=== PATIENT | male | born 1980 | race Caucasian/White ===

== ENCOUNTER → 2018-06-16 | Outpatient (CLI) | payer BC ==
--- NOTE | 2018-06-16 14:31 | XR ---
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 There is as sociated soft tissue swelling, hypertrophic change. No dislocation. Spurring present at the talar nec k, tibiotalar joint compatible with osteoarthritis. IMPRESSION: Nonunion proximal fifth metatarsal fracture.
== END ==
LOC: RADXRMAIN 10:05
PROVIDERS: ATTEND Family Medicine
DX: S92.354K Nondisplaced fracture of fifth metatarsal bone, right foot, subsequent encounter for fracture with nonunion (principal); M79.673 Pain in unspecified foot

== ENCOUNTER → 2019-04-19 | Outpatient (CLI) | payer BC ==
[2019-04-19 08:05] LABS: Basophils # (A) 0.1 k/uL (0-0.2); Basophils % (A) 1 %; Eosinophils # (A) 0.3 k/uL (0-0.7); Eosinophils % (A) 5 %; HCT 50.9 % (39.0-53.0); HGB 16.6 gm/dL (13.0-17.5); Lymphocytes # (A) 2.2 k/uL (1.0-4.8); Lymphocytes % (A) 35 %; MCH 31.2 pg (25.0-35.0); MCHC 32.7 g/dL (31.0-37.0); MCV 95.5 fL (80.0-100.0); Mean Platelet Volume 7.3; Monocytes # (A) 0.4 k/uL (0-1.0); Monocytes % (A) 6 %; Neutrophils # (A) 3.2 k/uL (1.3-7.7); Neutrophils % (A) 51 %; Platelet Count 195 k/uL (150-450); RBC 5.32 m/uL (4.30-5.90); RDW 13.8 % (11.5-15.5); WBC 6.3 k/uL (3.8-10.6)
[2019-04-19 15:35] LABS: Carbon Dioxide 26.8 mmol/L (21.6-31.8); LDL Cholesterol,Calculated 97.8 mg/dL (0.0-131.0); Potassium 4.5 mmol/L (3.5-5.5); VLDL Calculation 49.2 mg/dL (5.00-40.00)
[2019-04-19 15:36] LABS: African American GFR (CKD) 80.8 (60.0-200.0); Albumin 4.6 g/dL (3.80-4.90); Albumin/Globulin Ratio 1.84 (1.60-3.17); Anion Gap 9.2 mmol/L (4.00-12.00); BUN/Creat Ratio 13.08 Ratio (12.00-20.00); Calcium 9.1 mg/dL (8.7-10.3); Globulin 2.5 g/dL (1.6-3.3); Total Bilirubin 0.6 mg/dL (0.3-1.2); Total Protein 7.1 g/dL (6.2-8.2)
[2019-04-19 16:03] LABS: Vitamin D 25 Hydroxy 13.3 ng/mL (30.0-100.0)
== END | disposition home or self-care (01) ==
LOC: LABWHC1 07:34
DX: E78.5 Hyperlipidemia, unspecified (principal); Z13.29 Encounter for screening for other suspected endocrine disorder; E27.8 Other specified disorders of adrenal gland; R53.82 Chronic fatigue, unspecified; E27.49 Other adrenocortical insufficiency; E23.0 Hypopituitarism; E34.9 Endocrine disorder, unspecified
CPT/HCPCS: 36415; 80053; 80061; 82040; 82306; 82533; 82626; 82670; 82672; 83001; 83002; 83090; 84153; 84270; 84305; 84403; 84436; 84439; 84443; 84481; 85025

== ENCOUNTER → 2020-05-25 | Outpatient (CLI) | payer BC | END | disposition home or self-care (01) | LOC: LABWHC1 14:08 | PROVIDERS: ATTEND Family Medicine | DX: Z03.818 Encounter for observation for suspected exposure to other biological agents ruled out (principal) | CPT/HCPCS: U0003; C9803 ==

== ENCOUNTER 2020-08-11 11:16 | Emergency (ER) | payer BC ==
[2020-08-11 11:26] VITALS: TEMP 98.9
[2020-08-11] MEDS ORDERED: methylPREDNISolone SOD SUCCI 125 MG/2 ML VIAL IV STA (11:53)
[2020-08-11] MEDS ORDERED: ORPHENADRINE 30 MG/ML 2 ML VIAL IVP STA (11:53)
[2020-08-11] MEDS ORDERED: MORPHINE SULFATE 2 MG/ML SYRINGE IVP STA (11:53)
[2020-08-11] MEDS ORDERED: KETOROLAC 15 MG/ML 1 ML VIAL IVP STA (11:53)
--- NOTE | 2020-08-11 11:56 | ED ---
Back Pain HPI - General Chief Complaint: Back Pain/Injury Stated Complaint: back injury Time Seen by Provider: 08/11/20 11:40 Source: patient, family, RN notes reviewed, old records reviewed Limitations: no limitations - History of Present Illness Initial Comments: 40-year-old male presents emergency department today with significant lower back pain with radiculopathy down the right leg. Patient reports that he was lifting heavy machinery felt a severe pop in his back. He reports that since that time he has been taking Motrin Tylenol and to take a leftover pain pill from her previous surgery. Patient reports that he has had significant pain with ambulation. Patient reports no saddle anesthesias. Patient reports that he's had no abdominal pain. He reports no known history of back problems. He did have previous lipoma removal on his back years ago. - Related Data Previous Rx's Medication Instructions Recorded Cyclobenzaprine [Flexeril] 10 mg PO TID #12 tab 08/11/20 HYDROcodone/APAP 5-325MG [[place] 1 tab PO Q6HR PRN 3 Days #12 tab 08/11/20 5-325] dexAMETHasone [Dexamethasone] 0.75 mg PO DAILY #12 tab 08/11/20 Allergies Allergy/AdvReac Type Severity Reaction Status Date / Time Penicillins Allergy Unknown Verified 08/11/20 11:26 Childhood Review of Systems ROS Statement: Those systems with pertinent positive or pertinent negative responses have been documented in the HPI. ROS Other: All systems not noted in ROS Statement are negative. Past Medical History Past Medical History: No Reported History History of Any Multi-Drug Resistant Organisms: None Reported Past Surgical History: Orthopedic Surgery Additional Past Surgical History / Comment(s): lower back lipoma removal. Right foot. Past Psychological History: No Psychological Hx Reported Smoking Status: Never smoker Past Alcohol Use History: Occasional Past Drug Use History: None Reported General Exam - General Exam Comments Initial Comments: 40-year-old male. No distress. Limitations: no limitations General appearance: alert, in no apparent distress Head exam: Present: atraumatic, normocephalic, normal inspection Eye exam: Present: normal appearance, PERRL, EOMI. Absent: scleral icterus, conjunctival injection, periorbital swelling ENT exam: Present: normal exam, mucous membranes moist Neck exam: Present: normal inspection. Absent: tenderness, meningismus, lymphadenopathy Respiratory exam: Present: normal lung sounds bilaterally. Absent: respiratory distress, wheezes, rales, rhonchi, stridor Cardiovascular Exam: Present: regular rate, normal rhythm, normal heart sounds. Absent: systolic murmur, diastolic murmur, rubs, gallop, clicks GI/Abdominal exam: Present: soft, normal bowel sounds. Absent: distended, tenderness, guarding, rebound, rigid Extremities exam: Present: normal inspection, full ROM, normal capillary refill. Absent: tenderness, pedal edema, joint swelling, calf tenderness Back exam: Present: normal inspection, tenderness (Patient does have some tenderness over the lumbar spine) Neurological exam: Present: alert, oriented X3, CN II-XII intact Psychiatric exam: Present: normal affect, normal mood Skin exam: Present: warm, dry, intact, normal color. Absent: rash Course Vital Signs 08/11/20 11:20 Temperature 98.9 F Pulse Rate 18 L Respiratory 90 H Rate Blood Pressure 156/92 O2 Sat by Pulse 98 Oximetry Medical Decision Making - Medical Decision Making A 32-year-old male presents emergency department today for eval for concern for lower back pain after doing heavy lifting. Patient reports that he bent over and heard a pop in his back. Patient denies of radiculopathy symptoms rating down right leg. No saddle anesthesias. Lumbar spine CAT scan today shows no evidence of compression fractures. He is mild degenerative changes throughout the lumbar spine. Patient was given IV analgesia does report improvement. Discussed antiplatelet her medicine and follow-up with orthopedic back specialist. Questions answered. - Radiology Data Radiology results: report reviewed Mild degenerative disease. Mild spinal curvature. Lumbar MRI could be performed for better evaluation. No paraspinal masses are noted. Lumbar segments intact. Disposition Clinical Impression: Mechanical back pain, DDD (degenerative disc disease) Disposition: ADMITTED IP TO THIS HOSP Condition: Stable Instructions (If sedation given, give patient instructions): Acute Low Back Pain (ED) Additional Instructions: Patient advised to take medications as prescribed. Follow-up with primary care doctor. Return to emergency department if any alarming signs symptoms occur. Recommended close follow-up with orthopedic back specialist as well. Prescriptions: dexAMETHasone [Dexamethasone] 0.75 mg PO DAILY #12 tab Cyclobenzaprine [Flexeril] 10 mg PO TID #12 tab HYDROcodone/APAP 5-325MG [[place] 5-325] 1 tab PO Q6HR PRN 3 Days #12 tab PRN Reason: Pain Is patient prescribed a controlled substance at d/c from ED?: No Referrals: Ludin Marlow DO [Primary Care Provider] - 1-2 days Quoc Palacios DO [Doctor of Osteopathic Medicine] - 1-2 days Time of Disposition: 13:33
--- NOTE | 2020-08-11 13:07 | CT ---
EXAMINATION TYPE: CT lumbar spine wo con DATE OF EXAM: 08/11/2020 COMPARISON: None HISTORY: Back pain, radiculopathy CT DLP: 1355.4 mGycm Automated exposure control for dose reduction was used. An unenhanced CT of the lumbar spine was performed. Bone and soft tissue window settings are submitt ed as well as coronal and sagittal reconstructions. FINDINGS: There is multilevel spondylosis. Disc heights are preserved. Lumbar vertebral bodies show preserved h eight and alignment, bone mineralization. There is no evident spondylolysis. There is a mild spinal c urvature. L1-L2: Normal disc space height. No disc herniation protrusion or central stenosis. No facet joint arthropathy. No evidence for foraminal encroachment. L2-L3: Normal disc space height. No disc herniation protrusion or central stenosis. No facet joint arthropathy. No evidence for foraminal encroachment. L3-L4: Normal disc space height. No disc herniation protrusion or central stenosis. No facet joint arthropathy. No evidence for foraminal encroachment. L4-L5: Normal disc space height. No disc herniation protrusion or central stenosis. No facet joint arthropathy. No evidence for foraminal encroachment. L5-S1: Normal disc space height. No disc herniation protrusion or central stenosis. No facet joint arthropathy. No evidence for foraminal encroachment. IMPRESSION: Mild degenerative disc disease. Mild spinal curvature. Lumbar MRI could BE performed for better evaluation. No paraspinal masses are identified. Lumbar segments are intact.
[2020-08-11 13:55] VITALS: BP 141/73; PULSE 79; RESP 18
== END 2020-08-11 13:55 | disposition other institution (70) ==
LOC: EC 11:16
DX: M51.36 Other intervertebral disc degeneration, lumbar region (principal); Z88.0 Allergy status to penicillin; Z98.890 Other specified postprocedural states
CPT/HCPCS: 72131; 99285; 96374; 96375 ×3; J2360; J2930; J2270; J1885

== ENCOUNTER 2020-12-05 11:22 | Inpatient (IN) | payer BC ==
[2020-12-05] MEDS ORDERED: SODIUM CHLORIDE 0.9% 1,000 ML IV STA (12:19)
[2020-12-05 12:52] LABS: Basophils % (A) 0 %; Eosinophils % (A) 0 %; HCT 42.3 % (39.0-53.0); HGB 14.4 gm/dL (13.0-17.5); Lymphocytes # (A) 0.5 k/uL (1.0-4.8); Lymphocytes % (A) 10 %; MCH 30.9 pg (25.0-35.0); MCHC 34.1 g/dL (31.0-37.0); MCV 90.7 fL (80.0-100.0); Mean Platelet Volume 7.2; Monocytes # (A) 0.2 k/uL (0-1.0); Monocytes % (A) 4 %; Neutrophils # (A) 3.9 k/uL (1.3-7.7); Neutrophils % (A) 84 %; Platelet Count 163 k/uL (150-450); RBC 4.67 m/uL (4.30-5.90); WBC 4.7 k/uL (3.8-10.6)
[2020-12-05] MEDS ORDERED: DEXAMETHASONE SOD PHOSPHATE 10 MG/ML 1 ML VIAL IV STA (13:06)
--- NOTE | 2020-12-05 13:08 | CT ---
EXAMINATION TYPE: CT angio chest DATE OF EXAM: 12/05/2020 12:54 PM COMPARISON: None. HISTORY: dyspnea, covid CT DLP: 792.1 mGycm Automated exposure control for dose reduction was used. CONTRAST: CTA scan of the thorax is performed with IV Contrast, patient injected with 100 mL of Isovue 370, pul monary embolism protocol. MIP images are created and reviewed. FINDINGS: LUNGS: Correlating with patient's history there are multifocal bilateral groundglass opacities greate st in the periphery with some relative sparing of the left upper lobe and lingula. There is no signif icant pleural effusion or pneumothorax. MEDIASTINUM: There is suboptimal study with near equal contrast in the right and left articular ston es and heterogeneity towards the periphery. No central pulmonary embolism. Cannot entirely exclude se gmental and subsegmental pulmonary embolism on this study. There are prominent bilateral hilar lymph nodes presumed reactive. Prominent paratracheal and subcarinal lymph nodes present. No cardiomegaly o r pericardial effusion OTHER: Asymmetric small degree flame-shaped left subareolar gynecomastia. Spine is straightened and sagittal images. IMPRESSION: Suboptimal study without central pulmonary embolism. Cannot exclude segmental and subsegm ental pulmonary emboli on this exam. Multifocal groundglass opacities correlate with patient's histor y of Covid-19 infection.
[2020-12-05 13:10] LABS: ALT 52 U/L (4-49); AST 47 U/L (17-59); African American GFR (CKD) >90 (>60 ml/min/1.73 sqM); Albumin 4.1 g/dL (3.5-5.0); Alkaline Phosphatase 35 U/L (38-126); Anion Gap 9 mmol/L; Blood Urea Nitrogen 9 mg/dL (9-20); Calcium 8.3 mg/dL (8.4-10.2); Carbon Dioxide 27 mmol/L (22-30); Chloride 99 mmol/L (98-107); Glucose 108 mg/dL (74-99); Magnesium 1.6 mg/dL (1.6-2.3); Non-African American GFR(CKD) >90 (>60 ml/min/1.73 sqM); Potassium 4.2 mmol/L (3.5-5.1); Sodium 135 mmol/L (137-145); Total Bilirubin 0.5 mg/dL (0.2-1.3); Total Protein 7.3 g/dL (6.3-8.2)
[2020-12-05 13:22] LABS: INR 0.9 (<1.2); Partial Thromboplastin Time 25.6 sec (22.0-30.0); Prothrombin Time 10.1 sec (9.0-12.0)
[2020-12-05 13:37] LABS: D-Dimer 1.12 mg/L FEU (<0.60)
[2020-12-05] MEDS ORDERED: ACETAMINOPHEN TAB 500 MG TAB PO STA (13:50)
--- NOTE | 2020-12-05 14:44 | ED ---
SOB HPI - General Chief Complaint: Shortness of Breath Stated Complaint: COVID+/increased SOB Time Seen by Provider: 12/05/20 12:07 Source: patient Mode of arrival: ambulatory Limitations: no limitations - History of Present Illness Initial Comments: Patient complains of shortness of breath. The shortness of breath is worse with exertion. He has taken no medicine for this. He has a productive cough. He has no back pain. He has no nausea or vomiting. He has fevers. He has no focal weakness. He has no lightheadedness. He has no dizziness. He wasn't doing anything when this began. - Related Data Home Medications Medication Instructions Recorded Confirmed Acetaminophen [Tylenol] 650 mg PO Q8H PRN 12/05/20 12/05/20 Albuterol Inhaler [Ventolin Hfa 2 puff INHALATION RT-Q6H PRN 12/05/20 12/05/20 Inhaler] Dextromethorphan Polistirex 30 mg PO Q12HR PRN 12/05/20 12/05/20 [Delsym] Ibuprofen [Motrin Ib] 200 mg PO Q8H PRN 12/05/20 12/05/20 Losartan Potassium 100 mg PO DAILY 12/05/20 12/05/20 dexAMETHasone [Dexamethasone] 4 mg PO DAILY 12/05/20 12/05/20 guaiFENesin SYRUP 100MG/5ML 200 mg PO Q4H PRN 12/05/20 12/05/20 [Robitussin] Allergies Allergy/AdvReac Type Severity Reaction Status Date / Time Penicillins Allergy Unknown Verified 12/05/20 13:25 Childhood Sulfa (Sulfonamide Allergy Unknown Verified 12/05/20 13:25 Antibiotics) Childhood Review of Systems ROS Statement: Those systems with pertinent positive or pertinent negative responses have been documented in the HPI. ROS Other: All systems not noted in ROS Statement are negative. Past Medical History Past Medical History: No Reported History History of Any Multi-Drug Resistant Organisms: None Reported Past Surgical History: Orthopedic Surgery Additional Past Surgical History / Comment(s): lower back lipoma removal. Right foot. Past Psychological History: No Psychological Hx Reported Smoking Status: Never smoker Past Alcohol Use History: Occasional Past Drug Use History: None Reported General Exam Limitations: no limitations General appearance: alert, in no apparent distress Head exam: Present: atraumatic, normocephalic, normal inspection Eye exam: Present: normal appearance, PERRL, EOMI. Absent: scleral icterus, conjunctival injection, periorbital swelling ENT exam: Present: normal exam, mucous membranes moist Neck exam: Present: normal inspection. Absent: tenderness, meningismus, lymphadenopathy Respiratory exam: Present: normal lung sounds bilaterally. Absent: respiratory distress, wheezes, rales, rhonchi, stridor Cardiovascular Exam: Present: regular rate, normal rhythm, normal heart sounds. Absent: systolic murmur, diastolic murmur, rubs, gallop, clicks GI/Abdominal exam: Present: soft, normal bowel sounds. Absent: distended, tenderness, guarding, rebound, rigid Extremities exam: Present: normal inspection, full ROM, normal capillary refill. Absent: tenderness, pedal edema, joint swelling, calf tenderness Back exam: Present: normal inspection Neurological exam: Present: alert, oriented X3, CN II-XII intact Psychiatric exam: Present: normal affect, normal mood Skin exam: Present: warm, dry, intact, normal color. Absent: rash Course Vital Signs 12/05/20 12/05/20 11:46 13:07 Temperature 100.8 F H Pulse Rate 107 H Respiratory 18 Rate Blood Pressure 129/76 O2 Sat by Pulse 93 L 87 L Oximetry Medical Decision Making - Medical Decision Making Patient presents with shortness of breath. He is coping positive. Imaging shows no evidence of pulmonary embolism, but diffuse groundglass opacities. He is hypoxic on room air, requiring supplemental oxygen. Patient is given IV Decadron. I will consult pulmonology. Patient will be admitted to the hospital. - Lab Data Result diagrams: 12/05/20 12:30 12/05/20 12:30 Lab Results 12/05/20 12/05/20 12/05/20 Range/Units 12:30 12:30 12:30 WBC 4.7 (3.8-10.6) k/uL RBC 4.67 (4.30-5.90) m/uL Hgb 14.4 (13.0-17.5) gm/dL Hct 42.3 (39.0-53.0) % MCV 90.7 (80.0-100.0) fL MCH 30.9 (25.0-35.0) pg MCHC 34.1 (31.0-37.0) g/dL RDW 13.0 (11.5-15.5) % Plt Count 163 (150-450) k/uL MPV 7.2 Neutrophils % 84 % Lymphocytes % 10 % Monocytes % 4 % Eosinophils % 0 % Basophils % 0 % Neutrophils # 3.9 (1.3-7.7) k/uL Lymphocytes # 0.5 L (1.0-4.8) k/uL Monocytes # 0.2 (0-1.0) k/uL Eosinophils # 0.0 (0-0.7) k/uL Basophils # 0.0 (0-0.2) k/uL PT 10.1 (9.0-12.0) sec INR 0.9 (<1.2) APTT 25.6 (22.0-30.0) sec D-Dimer 1.12 H (<0.60) mg/L FEU Sodium 135 L (137-145) mmol/L Potassium 4.2 (3.5-5.1) mmol/L Chloride 99 (98-107) mmol/L Carbon Dioxide 27 (22-30) mmol/L Anion Gap 9 mmol/L BUN 9 (9-20) mg/dL Creatinine 0.99 (0.66-1.25) mg/dL Est GFR (CKD-EPI)AfAm >90 (>60 ml/min/1.73 sqM) Est GFR (CKD-EPI)NonAf >90 (>60 ml/min/1.73 sqM) Glucose 108 H (74-99) mg/dL Plasma Lactic Acid Cb (0.7-2.0) mmol/L Calcium 8.3 L (8.4-10.2) mg/dL Magnesium 1.6 (1.6-2.3) mg/dL Total Bilirubin 0.5 (0.2-1.3) mg/dL AST 47 (17-59) U/L ALT 52 H (4-49) U/L Alkaline Phosphatase 35 L (38-126) U/L Troponin I (0.000-0.034) ng/mL NT-Pro-B Natriuret Pep pg/mL Total Protein 7.3 (6.3-8.2) g/dL Albumin 4.1 (3.5-5.0) g/dL 12/05/20 12/05/20 12/05/20 Range/Units 12:30 12:30 12:30 WBC (3.8-10.6) k/uL RBC (4.30-5.90) m/uL Hgb (13.0-17.5) gm/dL Hct (39.0-53.0) % MCV (80.0-100.0) fL MCH (25.0-35.0) pg MCHC (31.0-37.0) g/dL RDW (11.5-15.5) % Plt Count (150-450) k/uL MPV Neutrophils % % Lymphocytes % % Monocytes % % Eosinophils % % Basophils % % Neutrophils # (1.3-7.7) k/uL Lymphocytes # (1.0-4.8) k/uL Monocytes # (0-1.0) k/uL Eosinophils # (0-0.7) k/uL Basophils # (0-0.2) k/uL PT (9.0-12.0) sec INR (<1.2) APTT (22.0-30.0) sec D-Dimer (<0.60) mg/L FEU Sodium (137-145) mmol/L Potassium (3.5-5.1) mmol/L Chloride (98-107) mmol/L Carbon Dioxide (22-30) mmol/L Anion Gap mmol/L BUN (9-20) mg/dL Creatinine (0.66-1.25) mg/dL Est GFR (CKD-EPI)AfAm (>60 ml/min/1.73 sqM) Est GFR (CKD-EPI)NonAf (>60 ml/min/1.73 sqM) Glucose (74-99) mg/dL Plasma Lactic Acid Cb 1.3 (0.7-2.0) mmol/L Calcium (8.4-10.2) mg/dL Magnesium (1.6-2.3) mg/dL Total Bilirubin (0.2-1.3) mg/dL AST (17-59) U/L ALT (4-49) U/L Alkaline Phosphatase (38-126) U/L Troponin I <0.012 (0.000-0.034) ng/mL NT-Pro-B Natriuret Pep 109 pg/mL Total Protein (6.3-8.2) g/dL Albumin (3.5-5.0) g/dL Disposition Clinical Impression: Pneumonia Disposition: ADMITTED IP TO THIS HOSP Condition: Fair Is patient prescribed a controlled substance at d/c from ED?: No Referrals: Ludin Marlow DO [Primary Care Provider] - 1-2 days
[2020-12-05] MEDS ORDERED: MAG HYDROX/AL HYDROX/SIMETH 30 ML CUP PO PRN (14:49)
[2020-12-05] MEDS ORDERED: NALOXONE 0.4 MG/ML 1 ML VIAL IV PRN (14:49)
[2020-12-05] MEDS ORDERED: guaiFENesin SYRUP 100MG/5ML 200 MG/10 ML CUP PO PRN (14:53)
[2020-12-05] MEDS ORDERED: IBUPROFEN 600 MG TAB PO PRN (15:29)
[2020-12-06] MEDS: LOSARTAN 50 MG TAB PO SCH ×2 (00:24→08:31)
[2020-12-06] MEDS: ZOLPIDEM 5 MG TAB PO PRN (00:24)
[2020-12-06] MEDS: ACETAMINOPHEN TAB 325 MG TAB PO PRN ×3 (02:41→18:23)
[2020-12-06] MEDS ORDERED: LOSARTAN 50 MG TAB PO SCH (09:00)
[2020-12-06] MEDS ORDERED: Magnesium Replacement Protocol 1 EACH MISC MISCELLANE PRN (09:59)
[2020-12-06] MEDS: CHOLECALCIFEROL 25 MCG (1000 IU) TABLET PO SCH (11:47)
[2020-12-06] MEDS: ASCORBIC ACID 500 MG TAB PO SCH (11:47)
[2020-12-06] MEDS: PANTOPRAZOLE 40 MG/10 ML VIAL IVP SCH (11:47)
[2020-12-06] MEDS: ZINC SULFATE 220 MG CAP PO SCH (11:48)
[2020-12-06] MEDS: DEXAMETHASONE SOD PHOSPHATE 10 MG/ML 1 ML VIAL IV SCH (11:48)
[2020-12-06] MEDS: ASPIRIN 81 MG PO SCH (11:48)
[2020-12-06] MEDS: ENOXAPARIN 40 MG/0.4 ML SYRINGE SQ SCH (11:51)
[2020-12-06 12:10] LABS: Glucose,Whole Blood 127 mg/dL (75-99)
[2020-12-06 12:15] LABS: HCT 41.6 % (39.0-53.0); HGB 14.6 gm/dL (13.0-17.5); MCH 31.7 pg (25.0-35.0); MCV 90.8 fL (80.0-100.0); Mean Platelet Volume 7.5; Platelet Count 181 k/uL (150-450); RBC 4.59 m/uL (4.30-5.90); RDW 12.2 % (11.5-15.5); WBC 5.9 k/uL (3.8-10.6)
[2020-12-06] MEDS: INSULIN ASPART (NovoLOG) 100 UNIT/ML VIAL SQ SCH ×3 (12:52→20:57)
--- NOTE | 2020-12-06 13:09 | P.CNPUL ---
History of Present Illness Consult date: 12/06/20 Requesting physician: Ludin Marlow Reason for consult: dyspnea, abnormal CXR/CT Chief complaint: Shortness of breath, cough, fever History of present illness: This is a very pleasant 40-year-old gentleman who follows with Dr. Marlow as his primary care provider. He has a history of hypertension. One week ago he developed a fever shortness of breath cough congestion. He was seen at [facility] a rapid CoVID screen was reported negative however the PCR sent out was positive. Influenza screen was negative. He presented here to the emergency room yesterday with worsening shortness of breath, cough and congestion. Still febrile with a T-max of 101.3. O2 saturation 87% on room air. CT angiogram revealed multifocal groundglass opacities bilaterally. White count 5.9. Hemoglobin 14.6. Lymphocytes 0.5. D-dimer 1.12. Sodium 135. Potassium 4.2. Creatinine 0.99. His been initiated on dexamethasone, vitamin C, vitamin D, zinc. He is seen today in consultation on the regular medical floor. He is currently sitting up in bed. Awake and alert in no acute distress. He continues to be short of breath with minimal exertion. Continues with a dry nonproductive cough. Maintaining O2 saturation in the 90s on 2 L/m per nasal cannula. Current temperature 100.3. Review of Systems REVIEW OF SYSTEMS: CONSTITUTIONAL: Fever, generalized weakness. Denies any recent significant weight loss or weight gain. EYES: Denies change in vision. EARS, NOSE, MOUTH, THROAT: Denies headaches, denies sore throat. CARDIOVASCULAR: Denies chest pain, palpitations or syncopal episodes. RESPIRATORY: Positive for shortness of breath, cough, congestion no hemoptysis. GASTROINTESTINAL: Denies change in appetite, denies abdominal pain GENITOURINARY: Denies hematuria, denies infections. MUSKULOSKELETAL: Denies pain, denies swelling. INTEGUMENTARY: Denies rash, denies eczema. NEUROLOGICAL: Denies recent memory loss, no recent seizure activity. PSYCHIATRIC: Denies anxiety, denies depression. HEMATOLOGIC/LYMPHATIC: Denies anemia, denies enlarged lymph nodes. Past Medical History Past Medical History: Hypertension History of Any Multi-Drug Resistant Organisms: None Reported Past Surgical History: Orthopedic Surgery Additional Past Surgical History / Comment(s): lower back lipoma removal. Right foot sx Past Anesthesia/Blood Transfusion Reactions: No Reported Reaction Past Psychological History: No Psychological Hx Reported Smoking Status: Never smoker Past Alcohol Use History: Occasional Past Drug Use History: None Reported Medications and Allergies Home Medications Medication Instructions Recorded Confirmed Type Acetaminophen [Tylenol] 650 mg PO Q8H PRN 12/05/20 12/05/20 History Albuterol Inhaler [Ventolin Hfa 2 puff INHALATION RT-Q6H PRN 12/05/20 12/05/20 History Inhaler] Dextromethorphan Polistirex 30 mg PO Q12HR PRN 12/05/20 12/05/20 History [Delsym] Ibuprofen [Motrin Ib] 200 mg PO Q8H PRN 12/05/20 12/05/20 History Losartan Potassium 100 mg PO DAILY 12/05/20 12/05/20 History dexAMETHasone [Dexamethasone] 4 mg PO DAILY 12/05/20 12/05/20 History guaiFENesin SYRUP 100MG/5ML 200 mg PO Q4H PRN 12/05/20 12/05/20 History [Robitussin] Allergies Allergy/AdvReac Type Severity Reaction Status Date / Time Penicillins Allergy Unknown Verified 12/05/20 13:25 Childhood Sulfa (Sulfonamide Allergy Unknown Verified 12/05/20 13:25 Antibiotics) Childhood Physical Exam Vitals: Vital Signs Temp Pulse Pulse Resp BP BP Pulse Ox 12/06/20 10:00 100.3 F H 99 16 139/87 93 L 12/06/20 07:55 20 12/06/20 05:06 99.8 F H 88 20 141/84 94 L 12/06/20 02:00 99.6 F 97 20 149/90 96 12/05/20 22:22 20 12/05/20 20:00 98.7 F 80 20 160/91 93 L 12/05/20 19:36 18 12/05/20 19:24 98.8 F 88 18 132/87 94 L 12/05/20 15:30 101.3 F H 101 H 18 136/79 100 12/05/20 13:07 87 L Intake and Output 12/05/20 12/06/20 12/06/20 22:59 06:59 14:59 Other: Voiding Method Toilet Weight 127.006 kg GENERAL EXAM: Alert, very pleasant 40-year-old gentleman, on 2 L nasal cannula, comfortable in no apparent distress. HEAD: Normocephalic. EYES: Normal reaction of pupils, equal size. NOSE: Clear with pink turbinates. THROAT: No erythema or exudates. NECK: No masses, no JVD. CHEST: No chest wall deformity. LUNGS: Equal air entry with crackles in the bilateral posterior bases. CVS: S1 and S2 normal with no audible murmur, regular rhythm. ABDOMEN: No hepatosplenomegaly, normal bowel sounds, no guarding or rigidity. SPINE: No scoliosis or deformity SKIN: No rashes CENTRAL NERVOUS SYSTEM: No focal deficits, tone is normal in all 4 extremities. EXTREMITIES: There is no peripheral edema. No clubbing, no cyanosis. Peripheral pulses are intact. Results - Laboratory Findings CBC and BMP: 12/06/20 10:33 12/05/20 12:30 PT/INR, D-dimer PT 10.1 sec (9.0-12.0) 12/05/20 12:30 INR 0.9 (<1.2) 12/05/20 12:30 D-Dimer 1.12 mg/L FEU (<0.60) H 12/05/20 12:30 Abnormal lab findings: Abnormal Labs 12/05/20 12/05/20 12/05/20 12:30 12:30 12:30 Lymphocytes # 0.5 L D-Dimer 1.12 H Sodium 135 L Glucose 108 H POC Glucose (mg/dL) Calcium 8.3 L ALT 52 H Alkaline Phosphatase 35 L 12/06/20 12:08 Lymphocytes # D-Dimer Sodium Glucose POC Glucose (mg/dL) 127 H Calcium ALT Alkaline Phosphatase - Diagnostic Findings Chest x-ray: image reviewed Assessment and Plan Assessment: 1 Acute hypoxemic respiratory failure secondary to an acute CoVID 19 pneumonitis 2 Lymphopenia secondary to above 3 Elevated d-dimer secondary to above 4 History of hypertension Plan: The patient was seen and evaluated by Dr. Duarte CAT scan and labs reviewed We will initiate the patient on Remdesivir Add Lovenox for DVT prophylaxis Continue dexamethasone, vitamin supplements Chest x-ray, d-dimer, inflammatory markers in a.m. We will continue to follow and make further recommendations based on his clinical status I, the cosigning physician, performed a history & physical examination of the patient. Lungs sounds with crackles in the bilateral posterior bases. Maintaining good O2 saturations in the 90s on 2 L/m per nasal cannula. I discussed the assessment and plan of care with my nurse practitioner, Denise Daevnport. I attest to the above consultation as dictated by her. Time with Patient: Greater than 30
[2020-12-06 13:41] LABS: African American GFR (CKD) >90 (>60 ml/min/1.73 sqM); Anion Gap 7 mmol/L; Blood Urea Nitrogen 15 mg/dL (9-20); Carbon Dioxide 30 mmol/L (22-30); Chloride 98 mmol/L (98-107); Glucose 99 mg/dL (74-99); Magnesium 1.7 mg/dL (1.6-2.3); Non-African American GFR(CKD) 82 (>60 ml/min/1.73 sqM); Potassium 4.4 mmol/L (3.5-5.1); Sodium 135 mmol/L (137-145)
[2020-12-06] MEDS ORDERED: REMDESIVIR 200 MG in SODIUM CHLORIDE 0.9% 250 ML IVPB ONE (14:00)
[2020-12-06 16:37] LABS: Glucose,Whole Blood 149 mg/dL (75-99)
--- NOTE | 2020-12-06 17:41 | P.HPIM ---
History of Present Illness H&P Date: 12/06/20 Chief Complaint: Worsening shortness of breath, abnormal chest x-ray This is a 40-year-old gentleman with past medical history of hypertension, developed worsening shortness of breath accompanied by fever, congestion about a week ago. Proceeded CAD med express, rapid covid reported negative, PCR positive, influenza screen was negative. Symptoms continued to worsen, prese nted to the ER yesterday, T-max 101.3, WBC 5.9, nonproductive cough, no nausea, vomiting or diarrhea, no abdominal pain. Complains of diaphragm sore from coughing. Reports he has a baby at home and that his may also have covid. as well.O2 sat on room air 87%, maintaining O2 sats in the 90s on 2 L nasal cannula. CTA suboptimal reported without central PE, unable to exclude segmental and subsegmental pulmonary emboli ,multifocal groundglass opacities bilaterally. Hemoglobin 14.6, platelets 181.,Lymphocytes 0.5. D-dimer 1.12. Sodium 135. Potassium 4.4. Magnesium 1.7, Creatinine 0.99-currently 1.13. Blood sugars controlled. Lactic acid 1.3. Troponin negative 1, EKG reported sinus tachycardia. Received IV Decadron in the ER, pulmonology consulted. Review of Systems ROS Statement: Those systems with pertinent positive or pertinent negative responses have been documented in the HPI. ROS Other: All systems not noted in ROS Statement are negative. Past Medical History Past Medical History: Hypertension History of Any Multi-Drug Resistant Organisms: None Reported Past Surgical History: Orthopedic Surgery Additional Past Surgical History / Comment(s): lower back lipoma removal. Right foot sx Past Anesthesia/Blood Transfusion Reactions: No Reported Reaction Past Psychological History: No Psychological Hx Reported Smoking Status: Never smoker Past Alcohol Use History: Occasional Past Drug Use History: None Reported Medications and Allergies Home Medications Medication Instructions Recorded Confirmed Type Acetaminophen [Tylenol] 650 mg PO Q8H PRN 12/05/20 12/05/20 History Albuterol Inhaler [Ventolin Hfa 2 puff INHALATION RT-Q6H PRN 12/05/20 12/05/20 History Inhaler] Dextromethorphan Polistirex 30 mg PO Q12HR PRN 12/05/20 12/05/20 History [Delsym] Ibuprofen [Motrin Ib] 200 mg PO Q8H PRN 12/05/20 12/05/20 History Losartan Potassium 100 mg PO DAILY 12/05/20 12/05/20 History dexAMETHasone [Dexamethasone] 4 mg PO DAILY 12/05/20 12/05/20 History guaiFENesin SYRUP 100MG/5ML 200 mg PO Q4H PRN 12/05/20 12/05/20 History [Robitussin] Allergies Allergy/AdvReac Type Severity Reaction Status Date / Time Penicillins Allergy Unknown Verified 12/05/20 13:25 Childhood Sulfa (Sulfonamide Allergy Unknown Verified 12/05/20 13:25 Antibiotics) Childhood Physical Exam Vitals: Vital Signs Temp Pulse Pulse Resp BP BP Pulse Ox 12/06/20 05:06 99.8 F H 88 20 141/84 94 L 12/06/20 02:00 99.6 F 97 20 149/90 96 12/05/20 22:22 20 12/05/20 20:00 98.7 F 80 20 160/91 93 L 12/05/20 19:36 18 12/05/20 19:24 98.8 F 88 18 132/87 94 L 12/05/20 15:30 101.3 F H 101 H 18 136/79 100 12/05/20 13:07 87 L 12/05/20 11:46 100.8 F H 107 H 18 129/76 93 L Intake and Output 12/05/20 12/06/20 12/06/20 22:59 06:59 14:59 Other: Voiding Method Toilet Weight 127.006 kg PHYSICAL EXAM: VITAL SIGNS: [As above] GENERAL: Sitting up in bed, no acute distress HEENT: Conjunctivae normal. eyes normal. NECK: No JVD. No thyroid enlargement. No LNs CARDIOVASCULAR: S1, S2 regular. No murmur RESPIRATION: Breath sounds diminished in the bases. No rhonchi, bibasilar rales. ABDOMEN: Soft, nontender . No guarding. no masses palpable. No ascites, No hepatosplenomegaly.Bowel sounds heard. LEGS: No edema. no swelling PSYCHIATRY: Alert and oriented X3, mood and affect normal. NERVOUS SYSTEM: Cranial N 2-12 grossly normal. Moves all 4 limbs. Diffuse weakness No focal deficits. Strength and sensation grossly intact. Skin: Warm and dry, no rash Lymphatic system. No LN neck axilla. Results CBC & Chem 7: 12/06/20 10:33 12/06/20 10:33 Labs: Abnormal Lab Results - Last 24 Hours (Table) 12/05/20 12/05/20 12/05/20 Range/Units 12:30 12:30 12:30 Lymphocytes # 0.5 L (1.0-4.8) k/uL D-Dimer 1.12 H (<0.60) mg/L FEU Sodium 135 L (137-145) mmol/L Glucose 108 H (74-99) mg/dL Calcium 8.3 L (8.4-10.2) mg/dL ALT 52 H (4-49) U/L Alkaline Phosphatase 35 L (38-126) U/L Thrombosis Risk Factor Assmnt - Choose All That Apply Any of the Below Risk Factors Present?: No Other Risk Factors: No Other congenital or acquired thrombophilia - If yes, enter type in comment: No Thrombosis Risk Factor Assessment Level: Very Low Risk Assessment and Plan Assessment: Acute, COvid-19 pneumonitis Acute hypoxic respiratory failure secondary to the above Elevated d-dimer, Lymphopenia secondary to #1 Hypertension Plan: Continue on current medication regime ,monitoring and symptomatic treatment. Dexamethasone, vitamin supplements ordered. Protonix for GI prophylaxis, Lovenox for DVT prophylaxis. Pulmonary consult in place. The impression and plan of care has been dictated as directed. : I performed a history and examination of this patient, discussed the same with the dictator. I agree with the dictator's note ,documented as a scribe. Any additional findings or plans will be noted.
[2020-12-06 20:55] LABS: Glucose,Whole Blood 116 mg/dL (75-99)
[2020-12-07] MEDS: ACETAMINOPHEN TAB 325 MG TAB PO PRN (02:25)
[2020-12-07] MEDS: ZOLPIDEM 5 MG TAB PO PRN ×2 (02:26→21:54)
[2020-12-07 06:39] LABS: Glucose,Whole Blood 94 mg/dL (75-99)
[2020-12-07 07:07] LABS: Basophils % (A) 0 %; Eosinophils % (A) 0 %; HCT 41.3 % (39.0-53.0); HGB 14.3 gm/dL (13.0-17.5); Lymphocytes # (A) 1.2 k/uL (1.0-4.8); Lymphocytes % (A) 22 %; MCH 31.3 pg (25.0-35.0); MCHC 34.6 g/dL (31.0-37.0); MCV 90.4 fL (80.0-100.0); Mean Platelet Volume 6.9; Monocytes # (A) 0.3 k/uL (0-1.0); Monocytes % (A) 6 %; Neutrophils # (A) 3.8 k/uL (1.3-7.7); Neutrophils % (A) 70 %; Platelet Count 215 k/uL (150-450); RBC 4.56 m/uL (4.30-5.90); WBC 5.4 k/uL (3.8-10.6)
[2020-12-07 07:32] LABS: African American GFR (CKD) >90 (>60 ml/min/1.73 sqM); Anion Gap 8 mmol/L; Blood Urea Nitrogen 18 mg/dL (9-20); C Reactive Protein 65.3 mg/L (<10.0); Calcium 8.9 mg/dL (8.4-10.2); Carbon Dioxide 31 mmol/L (22-30); Chloride 98 mmol/L (98-107); Glucose 100 mg/dL (74-99); LDH 1095 U/L (313-618); Non-African American GFR(CKD) 89 (>60 ml/min/1.73 sqM); Potassium 4.5 mmol/L (3.5-5.1); Sodium 137 mmol/L (137-145)
[2020-12-07] MEDS: INSULIN ASPART (NovoLOG) 100 UNIT/ML VIAL SQ SCH ×4 (08:38→21:54)
[2020-12-07] MEDS: ASPIRIN 81 MG PO SCH (08:40)
[2020-12-07] MEDS: ENOXAPARIN 40 MG/0.4 ML SYRINGE SQ SCH (08:40)
[2020-12-07] MEDS: PANTOPRAZOLE 40 MG/10 ML VIAL IVP SCH (08:40)
[2020-12-07] MEDS: CHOLECALCIFEROL 25 MCG (1000 IU) TABLET PO SCH (08:40)
[2020-12-07] MEDS: DEXAMETHASONE SOD PHOSPHATE 10 MG/ML 1 ML VIAL IV SCH (08:40)
[2020-12-07] MEDS: ZINC SULFATE 220 MG CAP PO SCH (08:40)
[2020-12-07] MEDS: ASCORBIC ACID 500 MG TAB PO SCH (08:40)
[2020-12-07] MEDS: LOSARTAN 50 MG TAB PO SCH (08:41)
--- NOTE | 2020-12-07 10:46 | P.PN ---
Subjective Progress Note Date: 12/07/20 This is a 40-year-old gentleman with past medical history of hypertension, developed worsening shortness of breath accompanied by fever, congestion about a week ago. Proceeded CAD med express, rapid covid reported negative, PCR positive, influenza screen was negative. Symptoms continued to worsen, presen yesenia to the ER yesterday, T-max 101.3, WBC 5.9, nonproductive cough, no nausea, vomiting or diarrhea, no abdominal pain. Complains of diaphragm sore from coughing. Reports he has a baby at home and that his may also have covid. as well.O2 sat on room air 87%, maintaining O2 sats in the 90s on 2 L nasal cannula. CTA suboptimal reported without central PE, unable to exclude segmental and subsegmental pulmonary emboli ,multifocal groundglass opacities bilaterally. Hemoglobin 14.6, platelets 181.,Lymphocytes 0.5. D-dimer 1.12. Sodium 135. Potassium 4.4. Magnesium 1.7, Creatinine 0.99-currently 1.13. Blood sugars controlled. Lactic acid 1.3. Troponin negative 1, EKG reported sinus t achycardia. Received IV Decadron in the ER, pulmonology consulted. 12/07/2020 Remdesevir initiated yesterday, received convalescent Plasma. Blood sugars controlled. Feels better today, reports ribs/diaphragm tenderness improved. Nonproductive cough lessened. T-max. 99.1. Creatinine improving down to 1.06. Elevated inflammatory markers: D-dimer up to .225, LDH 1095, CRP 65.3. Denies chest pain, palpitations. Denies lightheadedness dizziness or focal deficits. Vital signs stable, maintaining O2 sats in the 90s on 3 L nasal cannula. Objective - Vital Signs Vital signs: Vital Signs Temp 98.3 F 12/07/20 05:52 Pulse 70 12/07/20 05:52 Resp 20 12/07/20 05:52 BP 128/80 12/07/20 05:52 Pulse Ox 96 12/07/20 05:52 Intake & Output 12/06/20 12/07/20 12/07/20 18:59 06:59 18:59 Intake Total 213 Output Total 1900 1200 Balance -1687 -1200 Intake: Blood Product 213 Ffp Pher Conval Covid19 213 Acda 3 Unit [id number] Output: Urine 1900 1200 Other: Voiding Method Toilet # Bowel Movements 1 - Exam PHYSICAL EXAM: VITAL SIGNS: [As above] GENERAL: Alert and oriented 3, Sitting up in bed, no acute distress HEENT: Conjunctivae normal. eyes normal. Oral mucosa moist NECK: No JVD. No thyroid enlargement. CARDIOVASCULAR: S1, S2 regular. No murmur RESPIRATION: Breath sounds diminished in the bases. No rhonchi, less bibasilar rales. ABDOMEN: Soft, nontender . No guarding. no masses palpable. Psotove bowel sounds. LEGS: No edema. no swelling, no clubbing, no cyanosis, positive DP pulses. NERVOUS SYSTEM: Cranial N 2-12 grossly normal.No focal deficits. Strength and sensation grossly intact. Skin: Warm and dry, no rash - Labs CBC & Chem 7: 12/07/20 06:37 12/07/20 06:37 Labs: Abnormal Lab Results - Last 24 Hours (Table) 12/06/20 12/06/20 12/06/20 Range/Units 10:33 12:08 16:35 D-Dimer (<0.60) mg/L FEU Sodium 135 L (137-145) mmol/L Carbon Dioxide (22-30) mmol/L Glucose (74-99) mg/dL POC Glucose (mg/dL) 127 H 149 H (75-99) mg/dL Lactate Dehydrogenase (313-618) U/L C-Reactive Protein (<10.0) mg/L 12/06/20 12/07/20 12/07/20 Range/Units 20:51 06:37 06:37 D-Dimer 2.25 H (<0.60) mg/L FEU Sodium (137-145) mmol/L Carbon Dioxide 31 H (22-30) mmol/L Glucose 100 H (74-99) mg/dL POC Glucose (mg/dL) 116 H (75-99) mg/dL Lactate Dehydrogenase 1095 H (313-618) U/L C-Reactive Protein 65.3 H (<10.0) mg/L Assessment and Plan Assessment: Acute, COvid-19 pneumonitis Acute hypoxic respiratory failure secondary to the above Elevated d-dimer, Lymphopenia secondary to #1 Hypertension Plan: Continue on current medication regime ,monitoring and symptomatic treatment. Continue on Remdesevir, Dexamethasone, vitamin supplements ordered. Close monitoring of blood sugars, renal function, LFTs labs ordered for a.m. Close monitoring of inflammatory markers. Follow-up chest x-ray in a.m. Aggressive pulmonary toileting. Increase ambulation as tolerated. The impression and plan of care has been dictated as directed. : I performed a history and examination of this patient, discussed the same with the dictator. I agree with the dictator's note ,documented as a scribe. Any additional findings or plans will be noted.
[2020-12-07 11:26] LABS: Glucose,Whole Blood 127 mg/dL (75-99)
[2020-12-07] MEDS: REMDESIVIR 100 MG in SODIUM CHLORIDE 0.9% 250 ML IVPB SCH (12:40)
--- NOTE | 2020-12-07 13:26 | P.PN ---
Subjective Progress Note Date: 12/07/20 Principal diagnosis: CoVID 19 pneumonitis This is a very pleasant 40-year-old gentleman who follows with Dr. Marlow as his primary care provider. He has a history of hypertension. One week ago he developed a fever shortness of breath cough congestion. He was seen at [facility] a rapid CoVID screen was reported negative however the PCR sent out was positive. Influenza screen was negative. He presented here to the emergency room yesterday with worsening shortness of breath, cough and congestion. Still febrile with a T-max of 101.3. O2 saturation 87% on room air. CT angiogram revealed multifocal groundglass opacities bilaterally. White count 5.9. Hemoglobin 14.6. Lymphocytes 0.5. D-dimer 1.12. Sodium 135. Potassium 4.2. Creatinine 0.99. His been initiated on dexamethasone, vitamin C, vitamin D, zinc. He is seen today in consultation on the regular medical floor. He is currently sitting up in bed. Awake and alert in no acute distress. He continues to be short of breath with minimal exertion. Continues with a dry nonproductive cough. Maintaining O2 saturation in the 90s on 2 L/m per nasal cannula. Current temperature 100.3. The patient is seen today 12/07/2020 and follow-up on the regular medical floor. He is currently sitting up in bed. Awake and alert in no acute distress. He is feeling a bit better today compared to yesterday. Continues with dry nonproductive cough. Working well with the incentive spirometer. Maintaining O2 saturation in the 90s on 3 L/m per nasal cannula. This is day #2 of Remdesivir. He is continued on vitamin supplements, Decadron, Lovenox. White count 5.4. Hemoglobin 14.3. D-dimer 2.5. Sodium 137. Potassium 4.5. Creatinine 1.06. LDH 1095. C-reactive protein 6.3. Objective - Vital Signs Vital signs: Vital Signs Temp 99.1 F 12/07/20 09:42 Pulse 95 12/07/20 09:42 Resp 20 12/07/20 09:42 BP 128/83 12/07/20 09:42 Pulse Ox 91 L 12/07/20 09:42 Intake & Output 12/06/20 12/07/20 12/07/20 18:59 06:59 18:59 Intake Total 213 Output Total 1900 1200 Balance -1687 -1200 Intake: Blood Product 213 Ffp Pher Conval Covid19 213 Acda 3 Unit [id number] Output: Urine 1900 1200 Other: Voiding Method Toilet # Bowel Movements 1 - Exam GENERAL EXAM: Alert, pleasant 40-year-old gentleman, on 3 L per cannula. comfortable in no apparent distress. HEAD: Normocephalic. EYES: Normal reaction of pupils, equal size. NOSE: Clear with pink turbinates. THROAT: No erythema or exudates. NECK: No masses, no JVD. CHEST: No chest wall deformity. LUNGS: Equal air entry with crackles in the bilateral posterior bases. CVS: S1 and S2 normal with no audible murmur, regular rhythm. ABDOMEN: No hepatosplenomegaly, normal bowel sounds, no guarding or rigidity. SPINE: No scoliosis or deformity SKIN: No rashes CENTRAL NERVOUS SYSTEM: No focal deficits, tone is normal in all 4 extremities. EXTREMITIES: There is no peripheral edema. No clubbing, no cyanosis. Peripheral pulses are intact. - Labs CBC & Chem 7: 12/07/20 06:37 12/07/20 06:37 Labs: Abnormal Lab Results - Last 24 Hours (Table) 12/06/20 12/06/20 12/06/20 Range/Units 10:33 16:35 20:51 D-Dimer (<0.60) mg/L FEU Sodium 135 L (137-145) mmol/L Carbon Dioxide (22-30) mmol/L Glucose (74-99) mg/dL POC Glucose (mg/dL) 149 H 116 H (75-99) mg/dL Lactate Dehydrogenase (313-618) U/L C-Reactive Protein (<10.0) mg/L 12/07/20 12/07/20 12/07/20 Range/Units 06:37 06:37 11:24 D-Dimer 2.25 H (<0.60) mg/L FEU Sodium (137-145) mmol/L Carbon Dioxide 31 H (22-30) mmol/L Glucose 100 H (74-99) mg/dL POC Glucose (mg/dL) 127 H (75-99) mg/dL Lactate Dehydrogenase 1095 H (313-618) U/L C-Reactive Protein 65.3 H (<10.0) mg/L Assessment and Plan Assessment: 1 Acute hypoxemic respiratory failure secondary to an acute CoVID 19 pneumonitis 2 Lymphopenia secondary to above 3 Elevated d-dimer secondary to above 4 History of hypertension Plan: The patient was seen and evaluated by Dr. Duarte We will continue with the current treatment plan Day #2 of Remdesivir Follow-up inflammatory markers in the a.m. Follow-up chest x-ray in the a.m. We will continue to follow and make further recommendations based on his clinical status I, the cosigning physician, performed a history & physical examination of the patient. Lungs sounds with crackles in the bilateral posterior bases. Maintaining good O2 saturations in the 90s on 3 L/m per nasal cannula. I discussed the assessment and plan of care with my nurse practitioner, Denise Davenport. I attest to the above note as dictated by her.
[2020-12-07 16:50] LABS: Glucose,Whole Blood 125 mg/dL (75-99)
[2020-12-07 21:20] LABS: Glucose,Whole Blood 132 mg/dL (75-99)
[2020-12-08 07:18] LABS: Glucose,Whole Blood 106 mg/dL (75-99)
[2020-12-08] MEDS: INSULIN ASPART (NovoLOG) 100 UNIT/ML VIAL SQ SCH ×4 (07:21→21:05)
--- NOTE | 2020-12-08 07:33 | XR ---
EXAMINATION TYPE: XR chest 1V portable DATE OF EXAM: 12/08/2020 COMPARISON: None HISTORY: Covid 19 TECHNIQUE: Single frontal view of the chest is obtained. FINDINGS: There are small partially consolidative opacities in the left lung base in the retrocardiac region and in the right infrahilar region in the right lower lobe. There are no pleural effusions or pneumothoraces. The heart size is normal. The osseous structures are intact. IMPRESSION: Small bibasilar partially consolidative opacities consistent with acute inflammatory change.
[2020-12-08 08:07] LABS: Basophils % (A) 1 %; Eosinophils % (A) 0 %; HCT 41.3 % (39.0-53.0); HGB 14.1 gm/dL (13.0-17.5); Lymphocytes # (A) 1.3 k/uL (1.0-4.8); Lymphocytes % (A) 22 %; MCH 30.9 pg (25.0-35.0); MCHC 34.1 g/dL (31.0-37.0); MCV 90.8 fL (80.0-100.0); Mean Platelet Volume 6.9; Monocytes # (A) 0.4 k/uL (0-1.0); Monocytes % (A) 8 %; Neutrophils # (A) 3.7 k/uL (1.3-7.7); Neutrophils % (A) 66 %; Platelet Count 258 k/uL (150-450); RBC 4.55 m/uL (4.30-5.90); RDW 12.1 % (11.5-15.5); WBC 5.6 k/uL (3.8-10.6)
[2020-12-08 08:22] LABS: ALT 191 U/L (4-49); AST 119 U/L (17-59); African American GFR (CKD) >90 (>60 ml/min/1.73 sqM); Albumin 3.9 g/dL (3.5-5.0); Albumin/Globulin Ratio 1.2; Alkaline Phosphatase 48 U/L (38-126); Anion Gap 10 mmol/L; Blood Urea Nitrogen 20 mg/dL (9-20); C Reactive Protein 43.3 mg/L (<10.0); Calcium 8.8 mg/dL (8.4-10.2); Carbon Dioxide 27 mmol/L (22-30); Chloride 99 mmol/L (98-107); Globulin 3.3 g/dL; Glucose 96 mg/dL (74-99); LDH 1298 U/L (313-618); Non-African American GFR(CKD) >90 (>60 ml/min/1.73 sqM); Potassium 4.7 mmol/L (3.5-5.1); Sodium 136 mmol/L (137-145); Total Bilirubin 0.6 mg/dL (0.2-1.3); Total Protein 7.2 g/dL (6.3-8.2)
[2020-12-08] MEDS: ASPIRIN 81 MG PO SCH (08:54)
[2020-12-08] MEDS: ENOXAPARIN 40 MG/0.4 ML SYRINGE SQ SCH ×2 (08:54→20:59)
[2020-12-08] MEDS: CHOLECALCIFEROL 25 MCG (1000 IU) TABLET PO SCH (08:54)
[2020-12-08] MEDS: DEXAMETHASONE SOD PHOSPHATE 10 MG/ML 1 ML VIAL IV SCH (08:54)
[2020-12-08] MEDS: ASCORBIC ACID 500 MG TAB PO SCH (08:54)
[2020-12-08] MEDS: LOSARTAN 50 MG TAB PO SCH (08:55)
[2020-12-08] MEDS: PANTOPRAZOLE 40 MG/10 ML VIAL IVP SCH (08:55)
[2020-12-08] MEDS: ZINC SULFATE 220 MG CAP PO SCH (08:55)
[2020-12-08] MEDS: ALBUTEROL HFA INHALER INHALATION PRN (11:32)
[2020-12-08 11:56] LABS: Glucose,Whole Blood 145 mg/dL (75-99)
--- NOTE | 2020-12-08 12:05 | P.PN ---
Subjective Progress Note Date: 12/08/20 Principal diagnosis: CoVID 19 pneumonitis This is a very pleasant 40-year-old gentleman who follows with Dr. Marlow as his primary care provider. He has a history of hypertension. One week ago he developed a fever shortness of breath cough congestion. He was seen at [facility] a rapid CoVID screen was reported negative however the PCR sent out was positive. Influenza screen was negative. He presented here to the emergency room yesterday with worsening shortness of breath, cough and congestion. Still febrile with a T-max of 101.3. O2 saturation 87% on room air. CT angiogram revealed multifocal groundglass opacities bilaterally. White count 5.9. Hemoglobin 14.6. Lymphocytes 0.5. D-dimer 1.12. Sodium 135. Potassium 4.2. Creatinine 0.99. His been initiated on dexamethasone, vitamin C, vitamin D, zinc. He is seen today in consultation on the regular medical floor. He is currently sitting up in bed. Awake and alert in no acute distress. He continues to be short of breath with minimal exertion. Continues with a dry nonproductive cough. Maintaining O2 saturation in the 90s on 2 L/m per nasal cannula. Current temperature 100.3. The patient is seen today 12/07/2020 and follow-up on the regular medical floor. He is currently sitting up in bed. Awake and alert in no acute distress. He is feeling a bit better today compared to yesterday. Continues with dry nonproductive cough. Working well with the incentive spirometer. Maintaining O2 saturation in the 90s on 3 L/m per nasal cannula. This is day #2 of Remdesivir. He is continued on vitamin supplements, Decadron, Lovenox. White count 5.4. Hemoglobin 14.3. D-dimer 2.5. Sodium 137. Potassium 4.5. Creatinine 1.06. LDH 1095. C-reactive protein 6.3. The patient is seen today 12/08/2020 follow-up on the regular medical floor. He is currently resting comfortably in bed. Awake and alert in no acute distress. Doing a bit better today compared to yesterday. Still some crackles in the bilateral posterior bases. Chest x-ray continues to show bilateral infiltrates. He is maintaining O2 saturation in the 90s on 2 L/m per nasal cannula. This is day #3 of Remdesivir. He remains on the vitamin supplements, Decadron, Lovenox. White count 5.6. Hemoglobin 14.1. D-dimer 5.62. Sodium 136. Potassium 4.7. Creatinine 0.93. LDH 1298. C-reactive protein 43.3. AST 119. ALT 191. Objective - Vital Signs Vital signs: Vital Signs Temp 98.1 F 12/08/20 09:39 Pulse 74 12/08/20 09:39 Resp 18 12/08/20 09:39 BP 148/79 12/08/20 09:39 Pulse Ox 93 L 12/08/20 09:39 Intake & Output 12/07/20 12/08/20 12/08/20 18:59 06:59 18:59 Output Total 800 Balance -800 Output: Urine 800 Other: Voiding Method Toilet Toilet # Voids 1 3 - Exam GENERAL EXAM: Alert, pleasant 40-year-old gentleman, on 2 L per cannula. comfortable in no apparent distress. HEAD: Normocephalic. EYES: Normal reaction of pupils, equal size. NOSE: Clear with pink turbinates. THROAT: No erythema or exudates. NECK: No masses, no JVD. CHEST: No chest wall deformity. LUNGS: Equal air entry with crackles in the bilateral posterior bases. CVS: S1 and S2 normal with no audible murmur, regular rhythm. ABDOMEN: No hepatosplenomegaly, normal bowel sounds, no guarding or rigidity. SPINE: No scoliosis or deformity SKIN: No rashes CENTRAL NERVOUS SYSTEM: No focal deficits, tone is normal in all 4 extremities. EXTREMITIES: There is no peripheral edema. No clubbing, no cyanosis. Peripheral pulses are intact. - Labs CBC & Chem 7: 12/08/20 07:19 12/08/20 07:19 Labs: Abnormal Lab Results - Last 24 Hours (Table) 12/07/20 12/07/20 12/08/20 Range/Units 16:47 21:18 07:15 D-Dimer (<0.60) mg/L FEU Sodium (137-145) mmol/L POC Glucose (mg/dL) 125 H 132 H 106 H (75-99) mg/dL AST (17-59) U/L ALT (4-49) U/L Lactate Dehydrogenase (313-618) U/L C-Reactive Protein (<10.0) mg/L 12/08/20 12/08/20 12/08/20 Range/Units 07:19 07:19 11:55 D-Dimer 5.62 H (<0.60) mg/L FEU Sodium 136 L (137-145) mmol/L POC Glucose (mg/dL) 145 H (75-99) mg/dL AST 119 H (17-59) U/L ALT 191 H (4-49) U/L Lactate Dehydrogenase 1298 H (313-618) U/L C-Reactive Protein 43.3 H (<10.0) mg/L Assessment and Plan Assessment: 1 Acute hypoxemic respiratory failure secondary to an acute CoVID 19 pneumonitis 2 Lymphopenia secondary to above 3 Elevated d-dimer secondary to above 4 History of hypertension Plan: The patient was seen and evaluated by Dr. Duarte Chest x-ray and labs reviewed D-dimer 5.62. Increase Lovenox to twice a day. Day #3 of Remdesivir Continue dexamethasone, vitamin supplements Received 1 unit of convalescent plasma Follow-up inflammatory markers in the a.m. We will continue to follow and make further recommendations based on his clinical status I, the cosigning physician, performed a history & physical examination of the patient. Lungs sounds with crackles in the bilateral posterior bases. Maintaining good O2 saturations in the 90s on 2 L/m per nasal cannula. I discussed the assessment and plan of care with my nurse practitioner, Denise Davenport. I attest to the above note as dictated by her.
[2020-12-08] MEDS: REMDESIVIR 100 MG in SODIUM CHLORIDE 0.9% 250 ML IVPB SCH (13:05)
[2020-12-08 16:51] LABS: Glucose,Whole Blood 109 mg/dL (75-99)
[2020-12-08 20:53] LABS: Glucose,Whole Blood 107 mg/dL (75-99)
[2020-12-08] MEDS: ZOLPIDEM 5 MG TAB PO PRN (20:59)
[2020-12-09] MEDS: ALBUTEROL HFA INHALER INHALATION PRN ×3 (06:02→19:27)
[2020-12-09 07:03] LABS: Glucose,Whole Blood 83 mg/dL (75-99)
[2020-12-09] MEDS: ASPIRIN 81 MG PO SCH (08:12)
[2020-12-09] MEDS: ASCORBIC ACID 500 MG TAB PO SCH (08:12)
[2020-12-09] MEDS: LOSARTAN 50 MG TAB PO SCH (08:12)
[2020-12-09] MEDS: ZINC SULFATE 220 MG CAP PO SCH (08:12)
[2020-12-09] MEDS: CHOLECALCIFEROL 25 MCG (1000 IU) TABLET PO SCH (08:12)
[2020-12-09] MEDS: ENOXAPARIN 40 MG/0.4 ML SYRINGE SQ SCH ×2 (08:12→20:51)
[2020-12-09] MEDS: INSULIN ASPART (NovoLOG) 100 UNIT/ML VIAL SQ SCH ×4 (08:13→20:51)
[2020-12-09] MEDS: PANTOPRAZOLE 40 MG/10 ML VIAL IVP SCH (08:13)
[2020-12-09] MEDS: DEXAMETHASONE SOD PHOSPHATE 10 MG/ML 1 ML VIAL IV SCH (08:13)
[2020-12-09 11:28] LABS: Glucose,Whole Blood 116 mg/dL (75-99)
[2020-12-09] MEDS: REMDESIVIR 100 MG in SODIUM CHLORIDE 0.9% 250 ML IVPB SCH (13:00)
--- NOTE | 2020-12-09 14:18 | P.PN ---
Subjective Progress Note Date: 12/09/20 Principal diagnosis: CoVID 19 pneumonitis This is a very pleasant 40-year-old gentleman who follows with Dr. Marlow as his primary care provider. He has a history of hypertension. One week ago he developed a fever shortness of breath cough congestion. He was seen at [facility] a rapid CoVID screen was reported negative however the PCR sent out was positive. Influenza screen was negative. He presented here to the emergency room yesterday with worsening shortness of breath, cough and congestion. Still febrile with a T-max of 101.3. O2 saturation 87% on room air. CT angiogram revealed multifocal groundglass opacities bilaterally. White count 5.9. Hemoglobin 14.6. Lymphocytes 0.5. D-dimer 1.12. Sodium 135. Potassium 4.2. Creatinine 0.99. His been initiated on dexamethasone, vitamin C, vitamin D, zinc. He is seen today in consultation on the regular medical floor. He is currently sitting up in bed. Awake and alert in no acute distress. He continues to be short of breath with minimal exertion. Continues with a dry nonproductive cough. Maintaining O2 saturation in the 90s on 2 L/m per nasal cannula. Current temperature 100.3. The patient is seen today 12/07/2020 and follow-up on the regular medical floor. He is currently sitting up in bed. Awake and alert in no acute distress. He is feeling a bit better today compared to yesterday. Continues with dry nonproductive cough. Working well with the incentive spirometer. Maintaining O2 saturation in the 90s on 3 L/m per nasal cannula. This is day #2 of Remdesivir. He is continued on vitamin supplements, Decadron, Lovenox. White count 5.4. Hemoglobin 14.3. D-dimer 2.5. Sodium 137. Potassium 4.5. Creatinine 1.06. LDH 1095. C-reactive protein 6.3. The patient is seen today 12/08/2020 follow-up on the regular medical floor. He is currently resting comfortably in bed. Awake and alert in no acute distress. Doing a bit better today compared to yesterday. Still some crackles in the bilateral posterior bases. Chest x-ray continues to show bilateral infiltrates. He is maintaining O2 saturation in the 90s on 2 L/m per nasal cannula. This is day #3 of Remdesivir. He remains on the vitamin supplements, Decadron, Lovenox. White count 5.6. Hemoglobin 14.1. D-dimer 5.62. Sodium 136. Potassium 4.7. Creatinine 0.93. LDH 1298. C-reactive protein 43.3. AST 119. ALT 191. The patient is seen today 12/09/2020 in follow-up on the regular medical floor. He is currently resting comfortably in bed. Awake and alert in no acute distress. Continues to improve daily. This is day #4 Remdesivir. He is maintaining O2 saturation in the low 90s on room air. D-dimer 8.04. LDH 1792. C-reactive protein 24.0. Blood glucose 116. He is continued on Lovenox, dexamethasone, vitamin supplements. Objective - Vital Signs Vital signs: Vital Signs Temp 98.6 F 12/09/20 13:54 Pulse 71 12/09/20 13:54 Resp 17 12/09/20 13:54 BP 156/73 12/09/20 13:54 Pulse Ox 93 L 12/09/20 13:54 Intake & Output 12/08/20 12/09/20 12/09/20 17:59 06:59 18:59 Intake Total 650 Balance 650 Intake: Oral 650 Other: Voiding Method Toilet # Voids - Exam GENERAL EXAM: Alert, pleasant 40-year-old gentleman, on room air. comfortable in no apparent distress. HEAD: Normocephalic. EYES: Normal reaction of pupils, equal size. NOSE: Clear with pink turbinates. THROAT: No erythema or exudates. NECK: No masses, no JVD. CHEST: No chest wall deformity. LUNGS: Equal air entry with crackles in the bilateral posterior bases. CVS: S1 and S2 normal with no audible murmur, regular rhythm. ABDOMEN: No hepatosplenomegaly, normal bowel sounds, no guarding or rigidity. SPINE: No scoliosis or deformity SKIN: No rashes CENTRAL NERVOUS SYSTEM: No focal deficits, tone is normal in all 4 extremities. EXTREMITIES: There is no peripheral edema. No clubbing, no cyanosis. Peripheral pulses are intact. - Labs CBC & Chem 7: 12/08/20 07:19 12/08/20 07:19 Labs: Abnormal Lab Results - Last 24 Hours (Table) 12/08/20 12/08/2021 Range/Units 16:46 20:50 06:36 D-Dimer 8.04 H (<0.60) mg/L FEU POC Glucose (mg/dL) 109 H 107 H (75-99) mg/dL Lactate Dehydrogenase (313-618) U/L C-Reactive Protein (<10.0) mg/L 12/09/20 12/09/20 Range/Units 06:36 11:26 D-Dimer (<0.60) mg/L FEU POC Glucose (mg/dL) 116 H (75-99) mg/dL Lactate Dehydrogenase 1792 H (313-618) U/L C-Reactive Protein 24.0 H (<10.0) mg/L Assessment and Plan Assessment: 1 Acute hypoxemic respiratory failure secondary to an acute CoVID 19 pneumonitis 2 Lymphopenia secondary to above 3 Elevated d-dimer secondary to above 4 History of hypertension Plan: The patient was seen and evaluated by Dr. Felicia Johnson #4 of Remdesivir Continue dexamethasone, Lovenox, vitamin supplements Received 1 unit of convalescent plasma Follow-up chest x-ray in a.m. Probable discharge in a.m. We will continue to follow I, the cosigning physician, performed a history & physical examination of the patient. Lungs sounds with crackles in the bilateral posterior bases. Maintaining good O2 saturations in the 90s on room air. I discussed the assessment and plan of care with my nurse practitioner, Denise Davenport. I attest to the above note as dictated by her.
[2020-12-09 16:30] LABS: Glucose,Whole Blood 117 mg/dL (75-99)
[2020-12-09 20:40] LABS: Glucose,Whole Blood 141 mg/dL (75-99)
[2020-12-09] MEDS: ZOLPIDEM 5 MG TAB PO PRN (20:51)
--- NOTE | 2020-12-10 01:45 | P.PN ---
Subjective Progress Note Date: 12/08/20 Principal diagnosis: Acute hypoxic respiratory failure secondary to Covid pneumonia This is a 40-year-old gentleman with past medical history of hypertension, developed worsening shortness of breath accompanied by fever, congestion about a week ago. Proceeded CAD med express, rapid covid reported negative, PCR positive, influenza screen was negative. Symptoms continued to worsen, presented to the ER yesterday, T-max 101.3, WBC 5.9, nonproductive cough, no nausea, vomiting or diarrhea, no abdominal pain. Complains of diaphragm sore from coughing. Reports he has a baby at home and that his may also have covid. as well.O2 sat on room air 87%, maintaining O2 sats in the 90s on 2 L nasal cannula. CTA suboptimal reported without central PE, unable to exclude segmental and subsegmental pulmonary emboli ,multifocal groundglass opacities bilaterally. Hemoglobin 14.6, platelets 181.,Lymphocytes 0.5. D-dimer 1.12. Sodium 135. Potassium 4.4. Magnesium 1.7, Creatinine 0.99-currently 1.13. Blood sugars controlled. Lactic acid 1.3. Troponin negative 1, EKG reported sinus tachycardia. Received IV Decadron in the ER, pulmonology consulted. 12/07/2020 Remdesevir initiated yesterday, received convalescent Plasma. Blood sugars controlled. Feels better today, reports ribs/diaphragm tenderness improved. Nonproductive cough lessened. T-max. 99.1. Creatinine improving down to 1.06. Elevated inflammatory markers: D-dimer up to .225, LDH 1095, CRP 65.3. Denies chest pain, palpitations. Denies lightheadedness dizziness or focal deficits. Vital signs stable, maintaining O2 sats in the 90s on 3 L nasal cannula. 12/08/2020 Patient is currently resting in the bed comfortably. Awake alert oriented x3. No acute distress noted. Continued on oxygen at 2 L via nasal cannula and is saturating at 90%. Patient is on remdesivir course day 3. Patient is being continued on dexamethasone, Lovenox and vitamin supplementation. Lab data showed WBC 5.6 hemoglobin 14.1 lymphocytes 1.3 sodium 136 LDH 1298 and CRP 43.3. AST was 109 and ALT 191. Blood sugar is 106. Patient has been afebrile. No complaints of chest pain. Shortness of breath is improving. Minimal exertional dyspnea when walking to the bathroom. Tolerating oral diet. Chest x-ray showed small bibasilar partially consolidative opacities consistent with acute inflammatory change. Current medications reviewed. Objective - Vital Signs Vital signs: Vital Signs Temp 98.1 F 12/08/20 09:39 Pulse 74 12/08/20 09:39 Resp 18 12/08/20 09:39 BP 148/79 12/08/20 09:39 Pulse Ox 93 L 12/08/20 09:39 Intake & Output 12/07/20 12/08/20 12/08/20 18:59 06:59 18:59 Output Total 800 Balance -800 Output: Urine 800 Other: Voiding Method Toilet Toilet # Voids 1 3 - Exam PHYSICAL EXAMINATION: Patient is lying in the bed comfortably, no acute distress, awake alert and oriented.. HEENT: Normocephalic. Neck is supple. Pupils reactive. Nostrils clear. Oral cavity is moist. Ears reveal no drainage. Neck reveals no JVD, carotid bruits, or thyromegaly. CHEST EXAMINATION: Trachea is central. Symmetrical expansion. Patient does have bibasilar minimal crackles. No wheezing or rhonchi. Nonlabored breathing.. CARDIAC: Normal S1, S2 with no gallops. No murmurs ABDOMEN: Soft. Bowel sounds normal. No organomegaly. No abdominal bruits. Extremities: reveal no edema. No clubbing or cyanosis Neurologically awake, alert, oriented x3 with well-coordinated movements. No focal deficits noted Skin: No rash or skin lesions. Psychiatric: Coperative. Nonsuicidal Musculoskeletal: No joint swelling or deformity. Normal range of motion. - Labs CBC & Chem 7: 12/08/20 07:19 12/08/20 07:19 Labs: Abnormal Lab Results - Last 24 Hours (Table) 12/07/20 12/07/20 12/08/20 Range/Units 16:47 21:18 07:15 D-Dimer (<0.60) mg/L FEU Sodium (137-145) mmol/L POC Glucose (mg/dL) 125 H 132 H 106 H (75-99) mg/dL AST (17-59) U/L ALT (4-49) U/L Lactate Dehydrogenase (313-618) U/L C-Reactive Protein (<10.0) mg/L 12/08/20 12/08/20 Range/Units 07:19 07:19 D-Dimer 5.62 H (<0.60) mg/L FEU Sodium 136 L (137-145) mmol/L POC Glucose (mg/dL) (75-99) mg/dL AST 119 H (17-59) U/L ALT 191 H (4-49) U/L Lactate Dehydrogenase 1298 H (313-618) U/L C-Reactive Protein 43.3 H (<10.0) mg/L Assessment and Plan Assessment: Acute, COvid-19 pneumonitis Acute hypoxic respiratory failure secondary to the above Elevated d-dimer, Lymphopenia secondary to #1 Hypertension Plan: Continue on current medication regime ,monitoring and symptomatic t reatment. Continue on Remdesevir, Dexamethasone, vitamin supplements ordered. Close monitoring of blood sugars, renal function, LFTs labs ordered for a.m. Close monitoring of inflammatory markers. Aggressive pulmonary toileting. Increase ambulation as tolerated. Time with Patient: Greater than 30
--- NOTE | 2020-12-10 01:49 | P.PN ---
Subjective Progress Note Date: 12/09/20 Principal diagnosis: Acute hypoxic respiratory failure secondary to Covid pneumonia This is a 40-year-old gentleman with past medical history of hypertension, developed worsening shortness of breath accompanied by fever, congestion about a week ago. Proceeded CAD med express, rapid covid reported negative, PCR positive, influenza screen was negative. Symptoms continued to worsen, presented to the ER yesterday, T-max 101.3, WBC 5.9, nonproductive cough, no nausea, vomiting or diarrhea, no abdominal pain. Complains of diaphragm sore from coughing. Reports he has a baby at home and that his may also have covid. as well.O2 sat on room air 87%, maintaining O2 sats in the 90s on 2 L nasal cannula. CTA suboptimal reported without central PE, unable to exclude segmental and subsegmental pulmonary emboli ,multifocal groundglass opacities bilaterally. Hemoglobin 14.6, platelets 181.,Lymphocytes 0.5. D-dimer 1.12. Sodium 135. Potassium 4.4. Magnesium 1.7, Creatinine 0.99-currently 1.13. Blood sugars controlled. Lactic acid 1.3. Troponin negative 1, EKG reported sinus tachycardia. Received IV Decadron in the ER, pulmonology consulted. 12/07/2020 Remdesevir initiated yesterday, received convalescent Plasma. Blood sugars controlled. Feels better today, reports ribs/diaphragm tenderness improved. Nonproductive cough lessened. T-max. 99.1. Creatinine improving down to 1.06. Elevated inflammatory markers: D-dimer up to .225, LDH 1095, CRP 65.3. Denies chest pain, palpitations. Denies lightheadedness dizziness or focal deficits. Vital signs stable, maintaining O2 sats in the 90s on 3 L nasal cannula. 12/08/2020 Patient is currently resting in the bed comfortably. Awake alert oriented x3. No acute distress noted. Continued on oxygen at 2 L via nasal cannula and is saturating at 90%. Patient is on remdesivir course day 3. Patient is being continued on dexamethasone, Lovenox and vitamin supplementation. Lab data showed WBC 5.6 hemoglobin 14.1 lymphocytes 1.3 sodium 136 LDH 1298 and CRP 43.3. AST was 109 and ALT 191. Blood sugar is 106. Patient has been afebrile. No complaints of chest pain. Shortness of breath is improving. Minimal exertional dyspnea when walking to the bathroom. Tolerating oral diet. Chest x-ray showed small bibasilar partially consolidative opacities consistent with acute inflammatory change. 12/09/2020 Patient is currently resting in the bed comfortably. Patient states that he feels better and is able to walk without much shortness of breath. Patient has been afebrile. No acute overnight issues. Currently on remdesivir day 4. Oxygen titrated down to room air. Inflammatory markers are still elevated. Blood sugar is controlled. Patient is tolerating oral diet. No nausea vomiting or abdominal pain or diarrhea. No chest pain. Patient is being continued dexamethasone, Lovenox and vitamin supplementation. Anticipate discharge in the next 24 hours. Pulmonary is on board. Current medications reviewed. Objective - Vital Signs Vital signs: Vital Signs Temp 98.6 F 12/09/20 13:54 Pulse 71 12/09/20 13:54 Resp 17 12/09/20 13:54 BP 156/73 12/09/20 13:54 Pulse Ox 93 L 12/09/20 13:54 Intake & Output 12/08/20 12/09/20 12/09/20 17:59 06:59 18:59 Intake Total 650 Balance 650 Intake: Oral 650 Other: Voiding Method Toilet # Voids - Exam PHYSICAL EXAMINATION: Patient is lying in the bed comfortably, no acute distress, awake alert and oriented.. HEENT: Normocephalic. Neck is supple. Pupils reactive. Nostrils clear. Oral cavity is moist. Ears reveal no drainage. Neck reveals no JVD, carotid bruits, or thyromegaly. CHEST EXAMINATION: Trachea is central. Symmetrical expansion. Patient does have bibasilar minimal crackles. No wheezing or rhonchi. Nonlabored breathing.. CARDIAC: Normal S1, S2 with no gallops. No murmurs ABDOMEN: Soft. Bowel sounds normal. No organomegaly. No abdominal bruits. Extremities: reveal no edema. No clubbing or cyanosis Neurologically awake, alert, oriented x3 with well-coordinated movements. No focal deficits noted Skin: No rash or skin lesions. Psychiatric: Coperative. Nonsuicidal Musculoskeletal: No joint swelling or deformity. Normal range of motion. - Labs CBC & Chem 7: 12/08/20 07:19 12/08/20 07:19 Labs: Abnormal Lab Results - Last 24 Hours (Table) 12/08/20 12/08/20 12/09/20 Range/Units 16:46 20:50 06:36 D-Dimer 8.04 H (<0.60) mg/L FEU POC Glucose (mg/dL) 109 H 107 H (75-99) mg/dL Lactate Dehydrogenase (313-618) U/L C-Reactive Protein (<10.0) mg/L 12/09/20 12/09/20 12/09/20 Range/Units 06:36 11:26 16:26 D-Dimer (<0.60) mg/L FEU POC Glucose (mg/dL) 116 H 117 H (75-99) mg/dL Lactate Dehydrogenase 1792 H (313-618) U/L C-Reactive Protein 24.0 H (<10.0) mg/L Assessment and Plan Assessment: Acute, COvid-19 pneumonitis Acute hypoxic respiratory failure secondary to the above Elevated d-dimer, Lymphopenia secondary to #1 Hypertension Plan: Continue on current medication regime ,monitoring and symptomatic treatment. Continue on Remdesevir, Dexamethasone, vitamin supplements. Close monitoring of blood sugars, renal function, LFTs labs ordered for a.m. Close monitoring of inflammatory markers. Aggressive pulmonary toileting. Increase ambulation as tolerated. Time with Patient: Greater than 30
[2020-12-10 06:58] LABS: Glucose,Whole Blood 91 mg/dL (75-99)
[2020-12-10] MEDS: INSULIN ASPART (NovoLOG) 100 UNIT/ML VIAL SQ SCH ×2 (07:50→11:39)
[2020-12-10] MEDS: DEXAMETHASONE SOD PHOSPHATE 10 MG/ML 1 ML VIAL IV SCH (07:55)
[2020-12-10] MEDS: PANTOPRAZOLE 40 MG/10 ML VIAL IVP SCH (07:57)
[2020-12-10] MEDS: LOSARTAN 50 MG TAB PO SCH (07:57)
[2020-12-10] MEDS: ASPIRIN 81 MG PO SCH (07:57)
[2020-12-10] MEDS: ZINC SULFATE 220 MG CAP PO SCH (07:57)
[2020-12-10] MEDS: CHOLECALCIFEROL 25 MCG (1000 IU) TABLET PO SCH (07:58)
[2020-12-10] MEDS: ASCORBIC ACID 500 MG TAB PO SCH (07:58)
[2020-12-10] MEDS: ENOXAPARIN 40 MG/0.4 ML SYRINGE SQ SCH (07:58)
[2020-12-10 09:47] LABS: Basophils # (A) 0.04 X 10*3/uL (0.00-0.10); Basophils % (A) 0.5 %; Eosinophils # (A) 0.01 X 10*3/uL (0.04-0.35); Eosinophils % (A) 0.1 %; HCT 40.9 % (39.6-50.0); Lymphocytes # (A) 2.16 X 10*3/uL (0.90-5.00); Lymphocytes % (A) 27.1 %; MCH 30.9 pg (27.0-32.0); MCHC 34.2 g/dL (32.0-37.0); MCV 90.3 fL (80.0-97.0); Mean Platelet Volume 9.7 fL (9.5-12.2); Neutrophils # (A) 4.72 X 10*3/uL (1.80-7.70); Neutrophils % (A) 59.2 %; Platelet Count 284 X 10*3/uL (140-440); RBC 4.53 X 10*6/uL (4.40-5.60); RDW 11.8 % (11.5-14.5); WBC 7.98 X 10*3/uL (4.50-10.00)
[2020-12-10 09:50] LABS: African American GFR (CKD) 110.2 (60.0-200.0); Albumin 3.9 g/dL (3.80-4.90); Albumin/Globulin Ratio 1.44 (1.60-3.17); Anion Gap 10.4 mmol/L (4.00-12.00); Calcium 8.8 mg/dL (8.7-10.3); Carbon Dioxide 24.6 mmol/L (21.6-31.8); Globulin 2.7 g/dL (1.6-3.3); Non-African American GFR(CKD) 95.1 (60.0-200.0); Potassium 4.3 mmol/L (3.5-5.5); Total Bilirubin 0.5 mg/dL (0.2-1.2); Total Protein 6.6 g/dL (6.2-8.2)
[2020-12-10 11:24] LABS: Glucose,Whole Blood 118 mg/dL (75-99)
[2020-12-10] MEDS: REMDESIVIR 100 MG in SODIUM CHLORIDE 0.9% 250 ML IVPB SCH (13:22)
[2020-12-10 13:30] VITALS: BP 159/80; PULSE 79; RESP 17; TEMP 98
--- NOTE | 2020-12-10 15:19 | P.PN ---
Subjective Progress Note Date: 12/10/20 Principal diagnosis: COVID 19 pneumonitis This is a very pleasant 40-year-old gentleman who follows with Dr. Marlow as his primary care provider. He has a history of hypertension. One week ago he developed a fever shortness of breath cough congestion. He was seen at [facility] a rapid CoVID screen was reported negative however the PCR sent out was positive. Influenza screen was negative. He presented here to the emergency room yesterday with worsening shortness of breath, cough and congestion. Still febrile with a T-max of 101.3. O2 saturation 87% on room air. CT angiogram revealed multifocal groundglass opacities bilaterally. White count 5.9. Hemoglobin 14.6. Lymphocytes 0.5. D-dimer 1.12. Sodium 135. Potassium 4.2. Creatinine 0.99. His been initiated on dexamethasone, vitamin C, vitamin D, zinc. He is seen today in consultation on the regular medical floor. He is currently sitting up in bed. Awake and alert in no acute distress. He continues to be short of breath with minimal exertion. Continues with a dry nonproductive cough. Maintaining O2 saturation in the 90s on 2 L/m per nasal cannula. Current temperature 100.3. The patient is seen today 12/07/2020 and follow-up on the regular medical floor. He is currently sitting up in bed. Awake and alert in no acute distress. He is feeling a bit better today compared to yesterday. Continues with dry nonproductive cough. Working well with the incentive spirometer. Maintaining O2 saturation in the 90s on 3 L/m per nasal cannula. This is day #2 of Remdesivir. He is continued on vitamin supplements, Decadron, Lovenox. White count 5.4. Hemoglobin 14.3. D-dimer 2.5. Sodium 137. Potassium 4.5. Creatinine 1.06. LDH 1095. C-reactive protein 6.3. The patient is seen today 12/08/2020 follow-up on the regular medical floor. He is currently resting comfortably in bed. Awake and alert in no acute distress. Doing a bit better today compared to yesterday. Still some crackles in the bilateral posterior bases. Chest x-ray continues to show bilateral infiltrates. He is maintaining O2 saturation in the 90s on 2 L/m per nasal cannula. This is day #3 of Remdesivir. He remains on the vitamin supplements, Decadron, Lovenox. White count 5.6. Hemoglobin 14.1. D-dimer 5.62. Sodium 136. Potassium 4.7. Creatinine 0.93. LDH 1298. C-reactive protein 43.3. AST 119. ALT 191. The patient is seen today 12/09/2020 in follow-up on the regular medical floor. He is currently resting comfortably in bed. Awake and alert in no acute distress. Continues to improve daily. This is day #4 Remdesivir. He is maintaining O2 saturation in the low 90s on room air. D-dimer 8.04. LDH 1792. C-reactive protein 24.0. Blood glucose 116. He is continued on Lovenox, dexamethasone, vitamin supplements. On 12/10/2000 patient seen in follow-up on medical floor, he continues to improve, he is breathing comfortably, rheumatic pulse ox is 95%, he said no fever or chills, tidal signs have been stable, this is day 5 of Remdesivir, he remains on Decadron, vitamins, and prophylactic Lovenox, no acute events overnight. The labs have been reviewed, his inflammatory markers as of yesterday was still elevated, and his d-dimer was 8.04. clinically patient has been stable, and arrangements are in process for discharge home today. Objective - Vital Signs Vital signs: Vital Signs Temp 98.0 F 12/10/20 13:30 Pulse 79 12/10/20 13:30 Resp 17 12/10/20 13:30 BP 159/80 12/10/20 13:30 Pulse Ox 95 12/10/20 13:30 Intake & Output 12/09/20 12/10/20 12/10/20 18:59 06:59 18:59 Intake Total 900 Balance 900 Intake: Oral 900 Other: Voiding Method Toilet Toilet # Voids 2 2 - Exam GENERAL EXAM: Alert, very pleasant, 40-year-old white male, on room air, with a pulse ox of 95% comfortable in no apparent distress. HEAD: Normocephalic/atraumatic. EYES: Normal reaction of pupils, equal size. Conjunctiva pink, sclera white. NOSE: Clear with pink turbinates. THROAT: No erythema or exudates. NECK: No masses, no JVD, no thyroid enlargement, no adenopathy. CHEST: No chest wall deformity. Symmetrical expansion. LUNGS: Equal air entry with no crackles, wheeze, rhonchi or dullness. CVS: Regular rate and rhythm, normal S1 and S2, no gallops, no murmurs, no rubs ABDOMEN: Soft, nontender. No hepatosplenomegaly, normal bowel sounds, no guarding or rigidity. EXTREMITIES: No clubbing, no edema, no cyanosis, 2+ pulses and upper and lower extremities. MUSCULOSKELETAL: Muscle strength and tone normal. SPINE: No scoliosis or deformity SKIN: No rashes CENTRAL NERVOUS SYSTEM: Alert and oriented -3. No focal deficits, tone is normal in all 4 extremities. PSYCHIATRIC: Alert and oriented -3. Appropriate affect. Intact judgment and insight. - Labs CBC & Chem 7: 12/10/20 05:13 12/10/20 05:13 Labs: Abnormal Lab Results - Last 24 Hours (Table) 12/09/20 12/09/20 12/10/20 Range/Units 16:26 20:39 05:13 Immature Gran # 0.25 H (0.00-0.04) X 10*3/uL Eosinophils # 0.01 L (0.04-0.35) X 10*3/uL Sodium (135-145) mmol/L POC Glucose (mg/dL) 117 H 141 H (75-99) mg/dL AST (14-35) U/L ALT (10-49) U/L Albumin/Globulin Ratio (1.60-3.17) g/dL 12/10/20 12/10/20 Range/Units 05:13 11:23 Immature Gran # (0.00-0.04) X 10*3/uL Eosinophils # (0.04-0.35) X 10*3/uL Sodium 134 L (135-145) mmol/L POC Glucose (mg/dL) 118 H (75-99) mg/dL AST 44 H (14-35) U/L ALT 195 H (10-49) U/L Albumin/Globulin Ratio 1.44 L (1.60-3.17) g/dL Assessment and Plan Plan: Assessment: #1. Acute hypoxic respiratory failure secondary to an acute COVID 19 pneumonitis, patient has been treated with Remdesivir, Decadron, and prophylact ic anticoagulation, addition to 1 unit of convalescent plasma #2. Lymphopenia, improved #3. Elevated d-dimer and inflammatory markers related to acute "with 19 infection #4. History of hypertension #5. Morbid obesity with BMI 39.1 kg/m Plan: Patient is doing well, clinically stable, he is improving, today's labs have been noted, his d-dimer as of yesterday was still elevated, and we'll recommend the patient go home on 30 day course of Xarelto to 10 mg daily. Patient will need outpatient follow-up in the office in 2-3 weeks I performed a history & physical examination of the patient and discussed their management with my nurse practitioner, Kassy Deras. I reviewed the nurse alysha guerrero's note and agree with the documented findings and plan of care. Lung sounds are positive for diminished breath sounds.. The findings and the impression was discussed with the patient. I attest to the documentation by the nurse practitioner. Time with Patient: Less than 30
== END 2020-12-10 15:04 | disposition home or self-care (01) | DRG 177 ==
LOC: EC 11:22 → 4SSUR 14:49
PROVIDERS: ADMIT Family Medicine; ATTEND Family Medicine
PROC: XW13325 Transfusion of Convalescent Plasma (Nonautologous) into Peripheral Vein, Percutaneous Approach, New Technology Group 5 (ICD-10-PCS; principal; 2020-12-06)
PROC: XW033E5 Introduction of Remdesivir Anti-infective into Peripheral Vein, Percutaneous Approach, New Technology Group 5 (ICD-10-PCS; 2020-12-06)
DX: U07.1 COVID-19 (principal); J12.82 Pneumonia due to coronavirus disease 2019; J96.01 Acute respiratory failure with hypoxia; E66.01 Morbid (severe) obesity due to excess calories; I10 Essential (primary) hypertension; R00.0 Tachycardia, unspecified; D72.810 Lymphocytopenia; R79.89 Other specified abnormal findings of blood chemistry; Z68.39 Body mass index [BMI] 39.0-39.9, adult; Z88.0 Allergy status to penicillin; Z88.2 Allergy status to sulfonamides; Z98.890 Other specified postprocedural states; Z87.2 Personal history of diseases of the skin and subcutaneous tissue
CPT/HCPCS: 36415; 71045; 71275; 80048; 80053; 83605; 83615; 83735; 83880; 84484; 85025; 85027; 85379; 85610; 85730; 86140; 86850; 86900; 86901; 93005; 94640; 94760; 96361; 96374; 99285

== ENCOUNTER → 2021-08-30 | Outpatient (CLI) | payer BC ==
--- NOTE | 2021-08-30 13:33 | XR ---
EXAMINATION TYPE: XR toes LT DATE OF EXAM: 08/30/2021 COMPARISON: NONE HISTORY: Pain TECHNIQUE: Three views are submitted. FINDINGS: The osseous structures are intact. There is no acute fracture or dislocation. Mild hypertrophic ar thropathy first MTP. IMPRESSION: 1. Mild hypertrophic arthropathy first MTP..
== END | disposition home or self-care (01) ==
LOC: RADXRMAIN 13:09
PROVIDERS: ATTEND Family Medicine
DX: M19.072 Primary osteoarthritis, left ankle and foot (principal)

== ENCOUNTER → 2025-03-22 | Outpatient (CLI) | payer BC ==
[2025-03-22 16:47] LABS: Prostate Specific Antigen 0.76 ng/mL (0.000-2.500)
[2025-03-22 16:50] LABS: ALT 54 U/L (10-49); AST 86 U/L (14-35); Albumin 4.9 g/dL (3.8-4.9); Albumin/Globulin Ratio 1.44 Ratio (1.60-3.17); Alkaline Phosphatase 31 U/L (41-126); Bilirubin, Conjugated <0.20 mg/dL (0.20-0.40); Bilirubin,Unconjugated >0.80 mg/dL (0.20-1.00); Globulin 3.4 g/dL (1.6-3.3); Total Protein 8.3 g/dL (6.2-8.2)
== END | disposition home or self-care (01) ==
LOC: LABWHC1 10:27
PROVIDERS: ATTEND Urology
DX: E29.1 Testicular hypofunction (principal)
CPT/HCPCS: 36415; 80076; 82746; 83036; 84153; 84403

== ENCOUNTER → 2025-03-29 | Outpatient (CLI) | payer BC ==
[2025-03-29 15:09] LABS: HCT 48.5 % (39.6-50.0); HGB 16.2 g/dL (13.0-17.0); MCH 32.1 pg (27.0-32.0); MCHC 33.4 g/dL (32.0-37.0); MCV 96.0 FL (80.0-97.0); NRBC Per 100 WBC 0 X 10*3/uL (0.00-0.01); Platelet Count 183 X 10*3/uL (140-440); RBC 5.05 X 10*6/uL (4.40-5.60); RDW 12.6 % (11.5-14.5); WBC 6.17 X 10*3/uL (4.50-10.00)
== END | disposition home or self-care (01) ==
LOC: LABWHC1 09:08
PROVIDERS: ATTEND Urology
DX: E29.1 Testicular hypofunction (principal)
CPT/HCPCS: 36415; 85027